=== PATIENT | female | born 1960 | race Caucasian/White ===

== ENCOUNTER 2018-06-23 10:20 | Outpatient (CLI) | payer OTHER ==
--- NOTE | 2018-06-23 15:21 | NM ---
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 Right knee pain. RADIOPHARMACEUTICAL: Technetium 99m MDP 30 millicuries injected intravenously. FINDINGS: There is symmetric blood flow and blood pooling in both knees without increased blood flow or blood p ooling. Delayed images demonstrate mildly increased uptake in the right knee, consistent with postop changes. The remainder of the whole body exam demonstrates degenerative changes in the shoulders an d spine. Tracer excretion through the kidneys is within normal limits. IMPRESSION: No evidence of right knee prosthetic loosening or infection. POS: OFF
== END 2018-06-23 10:21 | disposition home or self-care (01) ==
LOC: NM 10:20
PROVIDERS: ATTEND Specialist
DX: T84.038A Mechanical loosening of other internal prosthetic joint, initial encounter (principal)
CPT/HCPCS: 78315; A9503